=== PATIENT | female | born 1975 | race American Indian/Alaskan Native ===

== ENCOUNTER 2016-05-16 21:34 | Emergency (ER) | payer OTHER ==
[2016-05-16] MEDS ORDERED: cefTRIAXone 1 GM VIAL IM STA (22:39)
[2016-05-16] MEDS ORDERED: LIDOCAINE-MPF 1% 5 ML VIAL ONE (22:45)
[2016-05-16] MEDS ORDERED: cefTRIAXone 1 GM VIAL ONE (22:45)
[2016-05-16] MEDS ORDERED: ONDANSETRON ODT 4 MG Prepack 2 TL PRN (23:13)
[2016-05-16] MEDS ORDERED: HYDROcod/ACET 5/325 Prepack 6 PO ONE ×2 (23:13→23:16)
[2016-05-16] MEDS ORDERED: ONDANSETRON ODT 4 MG Prepack 2 TL ONE (23:16)
== END 2016-05-16 23:24 | disposition home or self-care (01) ==
DX: N12 Tubulo-interstitial nephritis, not specified as acute or chronic (principal)